=== PATIENT | female | born 1980 | race Caucasian/White ===

== ENCOUNTER 2019-10-12 14:15 | Emergency (ER) | payer OTHER, SELFPAY ==
[2019-10-12 14:13] VITALS: BP 133/89; PULSE 90; RESP 20; TEMP 36.6; O2SAT 98
--- NOTE | 2019-10-12 14:14 | ECG_ITS ---
Measurements Intervals [place] Rate: 93 P: 48 TN: 136 QRS: 23 QRSD: 90 T: 44 QT: 385 QTc: 480 Interpretive Statements SINUS RHYTHM POSSIBLE LEFT ATRIAL ENLARGEMENT BORDERLINE ECG Electronically Signed On 10-12-2019 15:05:39 CDT by Raul Sherman D.O.
--- NOTE | 2019-10-12 14:21 | ED.GENADULT ---
HPI - General Adult General Chief complaint: Unspecified Stated complaint: AMS Source: patient Mode of arrival: ambulatory Limitations: no limitations History of Present Illness HPI narrative: Patient is a 39-year-old female who presents per EMS for evaluation of alcohol intoxication was found on the side of the road pulled over patient was arousable a little groggy but alert and oriented x4 admitting to having drank a pint of alcohol this morning. Patient denies injury or trauma has history of alcohol abuse and former heroin use. Patient notes some mild discomfort of the abdomen which she describes as chronic given her history of liver disease secondary to alcohol abuse. Patient otherwise presents ANO x4 with a GCS of 15 in no distress Related Data Home Medications Medication Instructions Recorded Confirmed Zoloft 10/12/19 Allergies Allergy/AdvReac Type Severity Reaction Status Date / Time NSAIDS (Non-Steroidal AdvReac Gastrointestinal Verified 10/12/19 14:20 Anti-Inflamma Upset Review of Systems Review of Systems: All systems reviewed & are unremarkable except as noted in HPI and below PMFSH Past Medical History Medical History (Updated 10/12/19 @ 15:25 by Grady Pak PA-C) Alcohol abuse Heroin abuse Social History Social History (Updated 10/12/19 @ 14:23 by Grady Pak PA-C) Smoking status: Never smoker Gender identity (if verbalized by the patient): Female Exam Narrative: Exam Narrative: GENERAL: Well-appearing, well-nourished, and in no acute distress. HEAD: Normocephalic, atraumatic. EYES: PERRLA and EOMI. ENT: Nares clear, no rhinorrhea or epistaxis. Mucous membranes moist. CHEST: Clear to auscultation. No respiratory distress. No wheezes rales or rhonchi HEART: Regular rate and rhythm. No murmur heard. Normal peripheral pulses. ABDOMEN: Soft, nontender, nondistended EXTREMITIES: Normal range of motion. No edema. SKIN: Warm, dry, no rash. NEURO: No focal deficits. Alert and oriented x3. Cranial nerves II through XII grossly intact PSYCH: Normal mood and affect. Course Course Emergency Course: Patient in the room in no distress aware of case findings treatment plan and diagnosis signed out AMA wanting to leave prior to completing her evaluation Vital Signs Vital signs: Vital Signs Temperature 97.9 F 10/12/19 14:13 Pulse Rate 90 10/12/19 14:13 Respiratory Rate 20 10/12/19 14:13 Blood Pressure 133/89 10/12/19 14:13 Pulse Oximetry 98 10/12/19 14:13 Temperature 97.9 F 10/12/19 14:13 Pulse Rate 100 10/12/19 15:03 Respiratory Rate 18 10/12/19 15:03 Blood Pressure 102/59 L 10/12/19 15:03 Pulse Oximetry 99 10/12/19 15:03 Medical Decision Making MDM Narrative Medical decision making narrative: Patient decided to sign out AMA prior to her completion of her documentation patient with normal gait normal mentation will be picked up by her father and will follow with her specialist Vital Signs Vital Signs: Vital Signs Temperature 97.9 F 10/12/19 14:13 Pulse Rate 90 10/12/19 14:13 Respiratory Rate 20 10/12/19 14:13 Blood Pressure 133/89 10/12/19 14:13 Pulse Oximetry 98 10/12/19 14:13 Temperature 97.9 F 10/12/19 14:13 Pulse Rate 100 10/12/19 15:03 Respiratory Rate 18 10/12/19 15:03 Blood Pressure 102/59 L 10/12/19 15:03 Pulse Oximetry 99 10/12/19 15:03 Lab Data Result diagrams: 10/12/19 14:27 10/12/19 14:27 Labs: Lab Results 10/12/19 10/12/19 10/12/19 Range/Units 14:27 14:27 14:28 WBC 7.0 (4.5-10.0) K/mm3 RBC 4.00 L (4.2-5.4) M/mm3 Hgb 11.8 L (12.0-15.0) g/dL Hct 36.3 L (37.0-47.0) % MCV 90.8 (80-100) fl MCH 29.5 (26-34) pg MCHC 32.5 (32-36) g/dl RDW 16.1 H (11.5-14.5) % Plt Count 326 (150-375) k/mm3 MPV 10.0 (7.4-10.4) fl Immature Gran % (Auto) 0.1 (0-0.5) % Neut % (Auto) 61.1 (45.5-73.1) % Lym
[2019-10-12 14:44] LABS: Basophils Absolute Auto 0.1 K/mm3 (0.0-0.1); Eosinophils Absolute Auto 0.1 K/mm3 (0-0.3); Hematocrit 36.3 % (37.0-47.0); Hemoglobin 11.8 g/dL (12.0-15.0); Immature Granulocyte Absolute 0.01 K/mm3 (0.00-0.031); Immature Granulocyte Percent A 0.1 % (0-0.5); Lymphocytes Absolute Auto 2.06 K/mm3 (0.9-3.2); Lymphocytes Percent Auto 29.4 % (18.3-44.2); Mean Corpuscular HGB Conc 32.5 g/dl (32-36); Mean Corpuscular Hemoglobin 29.5 pg (26-34); Mean Corpuscular Volume 90.8 fl (80-100); Monocytes Absolute Auto 0.5 K/mm3 (0.1-0.6); Monocytes Percent Auto 7.4 % (2.6-8.5); Neutrophils Absolute Auto 4.3 K/mm3 (1.3-6.7); Neutrophils Percent Auto 61.1 % (45.5-73.1); Platelet Count Result 326 k/mm3 (150-375); Red Cell Distribution Width 16.1 % (11.5-14.5)
[2019-10-12 14:47] LABS: Add Urine Microscopic? NO; Appearance Urine Clear (Clear); Bilirubin Urine Negative (Negative); Blood Urine Negative (Negative); Color Urine Colorless (Yellow); Glucose Urine UA Negative (Negative); Ketones Urine Negative (Negative); Leukocyte Esterase Ur Negative LEU/UL (Negative); Nitrate Urine Negative (Negative); Protein Urine Negative (Negative); Urobilinogen Urine Negative mg/dL (<2.0)
[2019-10-12] MEDS: SODIUM CHLORIDE 0.9% IV 1,000 ML 999 ML IV CONT (14:48)
[2019-10-12] MEDS: FAMOTIDINE 20 MG/2 ML VIAL IV PUSH (14:48)
[2019-10-12 14:49] LABS: Specific Grav Ur 1.003 (1.001-1.035)
[2019-10-12 15:01] LABS: Alanine Aminotransferase 120 U/L (4-35); Albumin Level 4.4 g/dL (3.5-5.1); Alkaline Phosphatase 321 U/L (38-126); Anion Gap 11 mmol/L (8-16); Aspartate Amino Transferase 303 U/L (14-36); Bilirubin,Total 0.6 mg/dL (0.2-1.3); Blood Urea Nitrogen 8 mg/dL (7-17); Calcium 9.3 mg/dL (8.4-10.2); Carbon Dioxide 22 mmol/L (22-30); Chloride 105 mmol/L (98-107); Estimated Glomerular Filt Rate > 60; Glucose 58 mg/dL (65-105); Lipase 419 U/L (23-300); Potassium 3.5 mmol/L (3.4-5.0); Sodium 138 mmol/L (137-145)
[2019-10-12 15:02] LABS: Glucose Point of Care 63 (65-105)
--- NOTE | 2019-10-12 15:02 | PC.NURSE ---
Patients blood sugar noted to be 63, Matteo notified. Uri crackers and pepsi given at this time.
[2019-10-12 15:03] VITALS: BP 102/59; PULSE 100; RESP 18; O2SAT 99
== END 2019-10-12 15:24 | disposition left against medical advice (07) ==
LOC: ANHED 14:37
PROVIDERS: Emergency Medicine Emergency Medical Services; Emergency Provider Emergency Medicine
DX: R10.9 Unspecified abdominal pain (principal); G89.29 Other chronic pain; K70.9 Alcoholic liver disease, unspecified; F10.10 Alcohol abuse, uncomplicated
CPT/HCPCS: 36415; 80053; 81003; 82248; 82948; 83690; 85025; 93005; 96361; 96374; 99284; J7030